=== PATIENT | male | born 1975 | race Caucasian/White ===

== ENCOUNTER 2025-04-16 23:49 | Emergency (ER) | payer MEDICAID ==
[~2025-04-16] VITALS: Ht 175.3 cm; Wt 75.0 kg
[2025-04-16 23:52] VITALS: TEMP 37; O2SAT 100
[2025-04-17 00:22] VITALS: BP 108/59; PULSE 98; RESP 16; O2SAT 99
[2025-04-17] MEDS ORDERED: P20 MT (00:42)
[2025-04-17] MEDS ORDERED: ALBU90AE INH (00:42)
== END 2025-04-17 01:07 | disposition home or self-care (01) ==
LOC: ER 23:49
DX: J45.901 Unspecified asthma with (acute) exacerbation (principal); I10 Essential (primary) hypertension
CPT/HCPCS: 93005; 99283